=== PATIENT | female | born 1930 | race Caucasian/White ===

== ENCOUNTER 2016-08-16 11:21 | Inpatient (IN) | payer MEDICARE, MEDICAID ==
[~2016-08-16] VITALS: Ht 160 cm; Wt 63.6 kg
[~2016-08-16 11:21] MED LIST: B12-METHYL1000 MCG PO; BACTRIM DS 8001 TA1 PO; CARBIDOPA AND L1 TAB PO; CIPRO 500MG TA500 MG PO; D3-50001 TAB PO; DONEPEZIL 10MG10 MG PO; FLUOXETINE HCL40 MG PO; HYDROXYZINE50 MG PO; LEVOTHYROXINE0.1 MG PO; MAXZIDE 25 MG-31 TAB PO; METOPROLOL50 MG PO; POTASSIUM CHLO10 ME3 PO; RISPERIDONE1 MG PO; XANAX 1MG TABLET1 MG PO
[2016-08-16 11:22] VITALS: BP 143/78
[2016-08-16] MEDS ORDERED: LEVOFLOXACIN 5500 M1 PO (11:31)
--- NOTE | 2016-08-16 11:31 | Emergency Room Report ---
History of Present Illness Time Seen by [id number] Presenting Problem in Triage Pt arrived:Wheelchair Presenting Problem:DAUGHTERS STATES PT HAS HAD CHEST PAIN SINCE THE WEEKEND. PT WAS SEEN BY DR. SRIVASTAVA YESTERDAY AND DX WITH UTI. Onset of symptoms date/time:/ or onset unknown for:MEDICAL HX UNKNOWN Treatment Prior to Arrival: [employer]PER[employer]OR [employer] Provided by: Sepsis Risk Assessment: Temp: B/P: 143/78 MAP: 99 Pulse: 58 Resp: 18 Recent fever? N Clinical Suspician of Infection? Y Mental Status: 1 - Regular (Normal Baseline) Sepsis Risk:Low Sepsis Risk Have you (or family members/close friends) recently traveled outside the [place]? N If Yes, where/when: Have you had exposure to infectious disease within the past month? TB? Other? Specific Chest pain that started four days ago. Details from two daughter at bedside, one of whom has medical POA. They state that patient was seen by her neurologist yesterday and labs done including UA showing UTI, now on Levaquin; also noted to have thyroid dysfunction and electrolyte abnormalities with Rx for magnesium PO prescribed yesterday, but first dose not yet taken. Patient has weakness due to chronic knee problems and PD, and uses a walker. She fell last night at her house as not using walker, and daughter immediately found her and noted negative LOC, negative trauma, negative complaint of any pain. She began vomiting this morning and is no longer keeping down liquids or her antibiotics. ROS limited as baseline dementia from PD. She is DNR/DNI per the medical POA daughter. ALLERGIES Coded Allergies: nitrofurantoin (From MACROBID) (Mild, 10/06/15) penicillin G (Mild, 10/06/15) Home Medications Active Scripts SULFAMETHOXAZOLE W/TRIMETHOPRI (Bactrim Ds Tab) 1 TAB PO BID 3 Days Prov: 10/06/15 Reported Medications Methylcobalamin (C36-Aqsnta) 1,000 MCG PO DAILY CHOLECALCIFEROL (VITAMIN D3) (Vitamin D3) 1 TAB PO DAILY Alprazolam (Xanax 1MG) 1 MG PO BID CARBIDOPA/LEVODOPA (Carbidopa-Levodopa 25-250 Tab) 1 TAB PO TID Hydroxyzine Hcl (Hydroxyzine) 25 MG PO QIDP PRN ITCHING DONEPEZIL HCL (Donepezil 10MG Tablet) 10 MG PO DAILY Metoprolol Tartrate (Metoprolol 25MG) 50 MG PO DAILY Levothyroxine Sodium (Levothyroxine) 0.05 MG NG DAILY POTASSIUM CHL (Potassium Chloride) 10 MEQ PO QOD Risperidone 0.5 MG PO DAILY Hydrochlorothiazide W/Triamter (Triamterene-Hctz 37.5-25 MG Tb) 1 TAB PO DAILY Fluoxetine Hcl (Fluoxetine 20MG) 40 MG PO DAILY Levofloxacin (Levofloxacin 500MG TAB) 500 MG PO DAILY #5 MELATONIN (Melatin) 1 TAB PO DAILY History Medical History General CAD? No Angina: No [place]: No Hypertension? Yes Hyperlipidemia? Yes CHF? No DVT? No PE? No COPD? No Asthma? Yes Anemia? Yes GERD? No Gastric ulcers? No GI Bleed? No Hernia? No Thyroid Problems? Yes Hypothyroidism? Yes CVA? No Seizures? No Diabetes? No Renal Insuffiency? No End Stage Renal Disease? No UTI? Yes Stones? No BPH? No GB Disease: No Nephritic Syndrome? No Asplenia? No Hepatitis? No Sickle Cell Disease? No Arthritis? Yes Migraines? No Cataracts? No Glaucoma? No MRSA? No HIV? No TB? No Anxiety? No Depression? No Cancer? Yes Site: SKIN CA More? No Immunization Hx DT/Tetanus Unknown Surgical Hx Previous Surgery?Y GOITER REMOVED RT KNEE REPLACEMENT RIGHT WRIST C- SECTION HYSTERECTOMY ESOPHAGEAL Social History Smoking Hx Smoker: Never Smoker Tobacco: No Packs/day N/A Alcohol Alcohol: No Review of Systems All Other Systems Reviewed and Negative (info from POA: pt demented) Gastrointestinal see HPI Genitourinary see HPI. Psychiatric/Neurological see HPI, depressed, weakness (baseline PD; dementia) Physical Exam Vital Signs Vital Signs Date Time Temp Pulse Resp B/P Pulse O2 O2 Flow FiO2 Ox Delivery Rate 08/16 1304 86 20 154/70 99 08/16 1158 56 20 136/64 99 08/16 1122 58 18 143/78 100 General Appearance normal appearance, WD/WN, no apparent distress (flat affect c /w PD) Eye Exam - bilateral eye normal exam, bilateral eye PERRL, bilateral eye EOMI Respiratory Status Yes: trachea midline, chest symmetrical, non tender chest. No: respiratory distress, tender on palpation, use of accessory muscles, pain on inspiration, pain on expiration, productive cough, non productive cough. Lung Sounds bilateral: normal breath sounds, lungs clear. Cardiovascular normal exam, regular rate/rhythm, no peripheral edema, no gallop, no JVD, no murmur, no rub, normal peripheral pulses Gastrointestinal normal bowel sounds, non tender, soft, no organomegaly, no pulsatile mass, no guarding, no rebound Extremities non-tender, normal inspection, normal capillary refill Neurologic Baseline stiffness and flat affect c/w PD; has baseline dementia and is nonverbal; no focal findings; does not follow commands, however. Skin intact, normal color Medical Decision Making LABS/Meds/Orders Pt receiving controlled substance in ED? No Results/Orders Laboratory Tests 08/16/16 1150: Sodium 139, Potassium 3.5, Chloride 103, Carbon Dioxide 22, BUN 22 H, Creatinine 1.5 H, Estimated Creat Clear 27 L, Estimated GFR (MDRD) 33 L, Glucose 106, Calcium 9.6, Phosphorus 1.1 L, Magnesium 1.5, Total Bilirubin 0.7, AST 44 H, ALT 9 L, Alkaline Phosphatase 77, Creatine Kinase 1379 H, CK-MB (CK -2) Rel Index 1.1, CK and CKMB Interp 15.6 *H, Troponin I 0.03, Total Protein 6.6, Albumin 3.4, Globulin 3.2, Albumin/Globulin Ratio 1.1, TSH 7.29 H, Free T4 Index 10.1, Thyroxine (T4) 10.7, T3 Uptake 38, WBC 16.0 H, RBC 4.17 L, Hgb 13.1, Hct 39.7, MCV 95.1, RDW 13.5, Plt Count 294, MPV 9.5, Gran % 82.6 H, Gran # 13.2 H, Total Counted 100, Lymphocytes % 11.2, Monocytes % 5.4, Eosinophils % 0.6, Basophils % 0.2, Neutrophils 87 H, Lymphocytes (Manual) 12, Lymphocytes # 1.8, Monocytes (Manual) 1 L, Monocytes # 0.9, Eosinophils # 0.1, Basophils # 0.0, Platelet Estimate NORMAL, [place] Cells 2+, PUBS MCHC 32.9, MCH 31.3 H Current Medication Orders Sig/Donnell Start time Last Medication Dose Route Stop Time Status Admin Potassium Phosphate 15 MM ONCE ONE 08/16 1300 AC Sodium Chloride 250 ML IV 08/16 1659 Levofloxacin/Dextrose 100 ML .STK-MED ONE 08/16 1252 DC IV Sodium Chloride 1,000 ML .STK-MED ONE 08/16 1252 DC IV Levofloxacin/Dextrose 100 ML ONCE ONE 08/16 1245 r 08/16 IV 08/16 1344 1257 Sodium Chloride 1,000 ML .Q10H 08/16 1245 AC 08/16 IV 08/17 0043 1257 Sodium Chloride 10 ML PRN PRN 08/16 1245 AC IV 08/17 1243 Magnesium Sulfate 1 GM ONCE ONE 08/16 1215 DC 08/16 Sodium Chloride 50 ML IV 08/16 1229 1234 Magnesium Sulfate 0 .STK-MED ONE 08/16 1214 DC .ROUTE Sodium Chloride 10 ML PRN PRN 08/16 1130 AC IV 08/17 1128 Orders Procedure Date/time Status Decision to admit 08/[address] HEAD REQ 08/16 1202 Complete DIFFERENTIAL-WBC 08/16 1150 Complete ELECTROCARDIOGRAM REQUEST 08/16 1128 Active IV SALINE LOCK 08/16 1128 Active CULTURE, BLOOD 08/16 1128 Active URINALYSIS/COMPLETE 08/16 1128 Active THYROID PANEL 2 (WITH TSH) 08/16 1128 Complete PHOSPHORUS 08/16 1128 Complete MAGNESIUM 08/16 1128 Complete CBC WITH AUTO DIFF 08/16 1128 Complete CARDIAC ENZYMES 08/16 1128 Complete CHEM 12 PROFILE 08/16 1128 Complete 12 LEAD EKG-EFREN (INITIAL) 08/16 UNK Active CM/EKG CM/EKG EKG rate (58 SB), rhythm, no ectopy, normal [place], compared w/(date of old), ST depression, very prolonged QTc noted at 592 was 499 in January of 2016; also has ST depression laterally not seen previously. XRAY/CT/US XRAY/CT/US XRAY chest XR interpretation by reviewed by me, discussed w/radiologist Xray Results normal/NAD (rotated neg acute), no infiltrates, normal heart size, normal lung inflation [place] CT head CT interpretation by reviewed by me (report reviewed) Time results known: 1300 CT Results normal/NAD, no fracture seen Consult MD Physician Consult 1 Time Called 1159 Reason Cardiology eval/care Physician Consult 2 Consult/PCP PCP is Dr. Mascorro; he will admit and requests cardiology consult. Time Called 1230 Reason Pt. Condition Progress ED Progress Notes 1 Date 08/16/16 Time 1212 Comment Med list reviewed: she is on multiple neuro/psych medications that could prolong the QTc. We have also requested labs from Dr. Srivastava's office as well as from the neurologist's office to get verification of low magnesium level; labs drawn here and are pending. Seizure precautions on bed. ED Progress Notes 2 Date 08/16/16 Time [address] Banks's office: Mag level 1.5 on 08/15/16; will initiate replacement IV. Patient renal function good at that time, with elevated TSH, low phosphorous, documented UTI. ED Progress Notes 3 Date 08/16/16 Time 1337 Comment Family states patient would never want to be on a ventilator; states would want CPR as well as ETT emergently. Family states they have a "living will" but it sounds as if these are advanced directives, based on what they are requesting. Daughter POA will bring in papers. Departure Departure Time of Disposition 1240 Disposition Still a Patient Clinical Impression Primary Impression: Prolonged Q-T interval on ECG Secondary Impressions: UTI (urinary tract infection) Vomiting Qualifiers: Vomiting type: unspecified Vomiting Intractability: non-intractable Nausea presence: without nausea Qualified Code: R11.11 - Vomiting without nausea Condition STABLE ED Critical Care Critical Care Yes Time spent 30-74 min Vital system(s) involved: Circulatory Failure (long QTc) I was present at bedside for Coordinating pt's care, Interpreting EKGs/Strips , During my initial exam, Reviewing lab results, Reviewing old records, Discussing pt condition, For re-examinations, Examining radiographs (multiple consults) at [id number]
[2016-08-16] MEDS ORDERED: MELATIN1 TAB PO (11:32)
[2016-08-16 12:01] LABS: HEMOGLOBIN 13.1 g/dL (12.2-16.2); LYMPH # 1.8 K/mm3 (0.7-4.5); LYMPH % 11.2 % (10-50.0)
[2016-08-16 12:21] LABS: NEUTROPHILS 87 % (42-76)
[2016-08-16 12:26] LABS: FREE THYROXIN INDEX 10.1 ug/dl (5.93-13.13)
--- NOTE | 2016-08-16 12:43 | RADIOLOGY REPORT PS360 ---
CHEST-PORTABLE HISTORY: Generalized weakness malaise ORDERING PHYSICIAN: Lali Schultz MD PATIENT AGE: 85 years COMPARISON: 01/17/2016 FINDINGS: The cardiomediastinal silhouette and pulmonary vascularity are within normal limits. The lungs are clear without infiltrates, suspicious nodules, or pleural effusions. No acute bony abnormalities. IMPRESSION: Negative chest, no acute finding
--- NOTE | 2016-08-16 12:44 | RADIOLOGY REPORT PS360 ---
CT HEAD W/O CONTRAST HISTORY: Generalized weakness, malaise, dementia, hit back of head, Head pain following injury FALL ORDERING PHYSICIAN: Lali Schultz MD PATIENT AGE: 85 years COMPARISON: 10/06/2015 TECHNIQUE: Axial images obtained without contrast. Brain and bone windows reviewed. FINDINGS: No midline shift, mass effect, intracranial hemorrhage, hydrocephalus, or extra-axial fluid collection is evident. There is diffuse atrophy with hypoattenuation in the periventricular and subcortical region consistent with microangiopathic change. No intra or extra-axial hemorrhage. No acute calvarial fracture or mastoid effusion. A small air-fluid levels present in the right maxillary sinus and there is variable mucosal thickening of the paranasal sinuses. IMPRESSION: 1. Atrophy with chronic ischemic change. No acute intracranial pathology evident. 2. Sinus disease
[2016-08-16 13:53] VITALS: BP 159/63
[2016-08-16 13:57] VITALS: BP 159/63
--- NOTE | 2016-08-16 14:53 | HISTORY AND PHYSICAL REPORT ---
History and Physical (FCA) Date of admission: 08/16/16 Chief complaint: vomiting; AMS History: History of Present Illness: Ms De Leon is an 85 year old female with a history of Parkinson disease, dementia , depression hypothyroidism who presented to [facility] ER this AM after vomiting since awakening. Information is obtained from her 2 daughters who accompanied her to the ER. Patient became confused and very weak. Family denied that she had fever, upper respiratory symptoms, and diarrhea. 2 days ago she did complain of chest pain which was relieved by her nerve pill. She also experienced some falls. The daughters took her to see her neurologist yesterday and she was found to have a low MG++ and UTI. She was then evaluated in the office of A where she was found to have a UTI and started on Levaquin Past Medical History: Medical History: CAD? No Angina: No [place]: No Hypertension? Yes Hyperlipidemia? Yes CHF? No DVT? No PE? No COPD? No Asthma? Yes Anemia? Yes GERD? No Gastric ulcers? No GI Bleed? No Hernia? No Thyroid Problems? Yes Hypothyroidism? Yes CVA? No Seizures? No Diabetes? No Renal Insuffiency? No UTI? Yes Stones? No BPH? No GB Disease: No Nephritic Syndrome? No Asplenia? No Hepatitis? No Sickle Cell Disease? No Arthritis? Yes Migraines? No Cataracts? No Glaucoma? No MRSA? No HIV? No TB? No Anxiety? No Depression? No Cancer? Yes Site: SKIN CA More? No Medications: Reported Medications Risperidone 1 MG PO QHS CARBIDOPA/LEVODOPA (Sinemet Cr 50-200 Tablet) 1 TAB PO DAILY CARBIDOPA/LEVODOPA (Sinemet Cr 50-200 Tablet) 2 TAB PO QHS Alprazolam (Xanax 1MG) 1 MG PO TID Metoprolol Tartrate (Metoprolol) 50 MG PO DAILY LEVOTHYROXINE SOD (Synthroid) 0.1 MG PO DAILY Hydrochlorothiazide W/Triamter (Triamterene-Hctz 37.5-25 MG Tb) 1 TAB PO DAILY Fluoxetine Hcl 40 MG PO DAILY Methylcobalamin (S09-Irivef) 1,000 MCG PO DAILY CHOLECALCIFEROL (VITAMIN D3) (Vitamin D3) 1 TAB PO DAILY DONEPEZIL HCL (Donepezil 10MG Tablet) 10 MG PO DAILY POTASSIUM CHL (Potassium Chloride) 10 MEQ PO QOD Levofloxacin (Levofloxacin 500MG TAB) 500 MG PO DAILY #5 MELATONIN (Melatin) 1 TAB PO DAILY Allergies: Coded Allergies: nitrofurantoin (From MACROBID) (Mild, 10/06/15) penicillin G (Mild, 10/06/15) Social History: Smoking Hx Tobacco: No Smoker: Never Smoker Packs/day: N/A Are you exposed to second hand Yes Alcohol: Alcohol: No Hx of Drug Use: Drug Use? No
--- NOTE | 2016-08-16 14:53 | HISTORY AND PHYSICAL REPORT ---
History and Physical (FCA) Date of admission: 08/16/16 Chief complaint: vomiting; AMS History: History of Present Illness: Ms De Leon is an 85 year old female with a history of Parkinson disease, dementia , depression hypothyroidism who presented to [facility] ER this AM after vomiting since awakening. Information is obtained from her 2 daughters who accompanied her to the ER. Patient became confused and very weak. Family denied that she had fever, upper respiratory symptoms, and diarrhea. 2 days ago she did complain of chest pain which was relieved by her nerve pill. She also experienced some falls. The daughters took her to see her neurologist yesterday and she was found to have a low MG++ and UTI. She was then evaluated in the office of A where she was found to have a UTI and started on Levaquin Past Medical History: Medical History: CAD? No Angina: No [place]: No Hypertension? Yes Hyperlipidemia? Yes CHF? No DVT? No PE? No COPD? No Asthma? Yes Anemia? Yes GERD? No Gastric ulcers? No GI Bleed? No Hernia? No Thyroid Problems? Yes Hypothyroidism? Yes CVA? No Seizures? No Diabetes? No Renal Insuffiency? No UTI? Yes Stones? No BPH? No GB Disease: No Nephritic Syndrome? No Asplenia? No Hepatitis? No Sickle Cell Disease? No Arthritis? Yes Migraines? No Cataracts? No Glaucoma? No MRSA? No HIV? No TB? No Anxiety? No Depression? No Cancer? Yes Site: SKIN CA More? No Medications: Reported Medications Risperidone 1 MG PO QHS CARBIDOPA/LEVODOPA (Sinemet Cr 50-200 Tablet) 1 TAB PO DAILY CARBIDOPA/LEVODOPA (Sinemet Cr 50-200 Tablet) 2 TAB PO QHS Alprazolam (Xanax 1MG) 1 MG PO TID Metoprolol Tartrate (Metoprolol) 50 MG PO DAILY LEVOTHYROXINE SOD (Synthroid) 0.1 MG PO DAILY Hydrochlorothiazide W/Triamter (Triamterene-Hctz 37.5-25 MG Tb) 1 TAB PO DAILY Fluoxetine Hcl 40 MG PO DAILY Methylcobalamin (C05-Aidupy) 1,000 MCG PO DAILY CHOLECALCIFEROL (VITAMIN D3) (Vitamin D3) 1 TAB PO DAILY DONEPEZIL HCL (Donepezil 10MG Tablet) 10 MG PO DAILY POTASSIUM CHL (Potassium Chloride) 10 MEQ PO QOD Levofloxacin (Levofloxacin 500MG TAB) 500 MG PO DAILY #5 MELATONIN (Melatin) 1 TAB PO DAILY Allergies: Coded Allergies: nitrofurantoin (From MACROBID) (Mild, 10/06/15) penicillin G (Mild, 10/06/15) Social History: Smoking Hx Tobacco: No Smoker: Never Smoker Packs/day: N/A Are you exposed to second hand Yes Alcohol: Alcohol: No Hx of Drug Use: Drug Use? No
[2016-08-16] MEDS ORDERED: SINEMET CR 50 M1 TER PO ×2 (15:42)
[2016-08-16 15:49] VITALS: BP 169/62
--- NOTE | 2016-08-16 16:12 | PHARMACY CLINIC NOTE ---
Patient Demographics Patient Demographics Admission date: 08/16/16 Date: 08/16/16 Time: 1611 Allergies Coded Allergies: nitrofurantoin (From MACROBID) (Mild, 10/06/15) penicillin G (Mild, 10/06/15) HEIGHT- FT: 5 IN: 3.00 K.341 VTE General Information Labs: Laboratory Tests 08/16 1150 Hematology Hgb (12.2 - 16.2 g/dL) 13.1 Hct (37.0 - 47.0 %) 39.7 Plt Count (142 - 424 K/mm3) 294 Disclaimer The following section includes nursing documentation that has been pulled in for pharmacy review. Patient's VTE score: 1 Patient's VTE Risk: VERY LOW RISK Clinical trial participant? No VTE prophylaxis [id number] VTE prophylaxis ordered? Yes Type of prophylaxis/treatment: ISHMAEL at 1611
--- NOTE | 2016-08-16 17:44 | HISTORY AND PHYSICAL REPORT ---
See Addendum History and Physical (FCA) Date of admission: 08/16/16 Chief complaint: vomiting; AMS History: History of Present Illness: History of Present Illness: Ms De Leon is an 85 year old female with a history of Parkinson disease, dementia , depression hypothyroidism who presented to [facility] ER this AM after vomiting since awakening. Information is obtained from her 2 daughters who accompanied her to the ER. Patient became confused and very weak. Family denied that she had fever, upper respiratory symptoms, and diarrhea. 2 days ago she did complain of chest pain which was relieved by her nerve pill. She also experienced some falls. The daughters took her to see her neurologist yesterday and she was found to have a low MG++ and UTI. She was then evaluated in the office of [facility] where she was found to have a UTI and started on Levaquin Past Medical History: Medical History: CAD? No Angina: No [place]: No Hypertension? Yes Hyperlipidemia? Yes CHF? No DVT? No PE? No COPD? No Asthma? Yes Anemia? Yes GERD? No Gastric ulcers? No GI Bleed? No Hernia? No Thyroid Problems? Yes Hypothyroidism? Yes CVA? No Seizures? No Diabetes? No Renal Insuffiency? No UTI? Yes Stones? No BPH? No GB Disease: No Nephritic Syndrome? No Asplenia? No Hepatitis? No Sickle Cell Disease? No Arthritis? Yes Migraines? No Cataracts? No Glaucoma? No MRSA? No HIV? No TB? No Anxiety? No Depression? No Cancer? Yes Site: SKIN CA More? No Additional hx: Parkinson disease Dementia Surgical history: Previous Surgery?Y GOITER REMOVED RT KNEE REPLACEMENT RIGHT WRIST C- SECTION HYSTERECTOMY ESOPHAGEAL Medications: Reported Medications Risperidone 1 MG PO QHS CARBIDOPA/LEVODOPA (Sinemet Cr 50-200 Tablet) 1 TAB PO DAILY CARBIDOPA/LEVODOPA (Sinemet Cr 50-200 Tablet) 2 TAB PO QHS Alprazolam (Xanax 1MG) 1 MG PO TID Metoprolol Tartrate (Metoprolol) 50 MG PO DAILY LEVOTHYROXINE SOD (Synthroid) 0.1 MG PO DAILY Hydrochlorothiazide W/Triamter (Triamterene-Hctz 37.5-25 MG Tb) 1 TAB PO DAILY Fluoxetine Hcl 40 MG PO DAILY Methylcobalamin (F33-Pkvhhf) 1,000 MCG PO DAILY CHOLECALCIFEROL (VITAMIN D3) (Vitamin D3) 1 TAB PO DAILY DONEPEZIL HCL (Donepezil 10MG Tablet) 10 MG PO DAILY POTASSIUM CHL (Potassium Chloride) 10 MEQ PO QOD Levofloxacin (Levofloxacin 500MG TAB) 500 MG PO DAILY #5 MELATONIN (Melatin) 1 TAB PO DAILY Allergies: Coded Allergies: nitrofurantoin (From MACROBID) (Mild, 10/06/15) penicillin G (Mild, 10/06/15) Family History: Family history: Postive for: CAD, HTN, cancer, stroke. Social History: Smoking Hx Tobacco: No Smoker: Never Smoker Type: N/A Packs/day: N/A Are you exposed to second hand Yes Alcohol: Alcohol: No Hx of Drug Use: Drug Use? No Patient's support system is: good Review of Systems: Constitutional Positive for: weak. ENT Positive for: sore throat. No: ear ache. Cardiovascular Positive for: chest pain. No: edema, palpitations. Respiratory Positive for: shortness of air. No: non-productive. GI Positive for: nausea, vomitting. No: abdominal pain, constipation, diarrhea. (female) Positive for: frequency. No: hematuria. Neurological Positive for: confusion, gait problem, headache, weakness. No: seizure, syncope. Musculoskeletal Positive for: extremity pain (falling), joint pain. Physical Exam: Vital signs: 1ST Vital Signs Result Date Time Pulse Ox 100 08/16 1122 B/P 143/78 08/16 1122 Pulse 58 08/16 1122 Resp 18 08/16 1122 Temp 97.2 08/16 1331 O2 Delivery ROOM AIR 08/16 1353 Exam: General appearance: alert, awake, no acute distress Eyes: anicteric, pupils reactive to light ENT: tympanic membranes normal, cerumen in ear canal, dry mucous membranes Neck: no carotid bruit, lymphadenopathy (absent), thyroid (normal) Cardiovascular: regular rate & rhythm Respiratory: scattered wheezing ABD: non-distended, soft, no tenderness, no guarding, bowel sounds present Extremities: no peripheral edema Skin: dry, face is flushed; poor skin turgor Neuro: alert, speech is slow and does not always questions Lab data: Labs: Laboratory Tests 08/16/16 1605: Troponin I 0.03 08/16/16 1150: Sodium 139, Potassium 3.5, Chloride 103, Carbon Dioxide 22, BUN 22 H, Creatinine 1.5 H, Estimated Creat Clear 27 L, Estimated GFR (MDRD) 33 L, Glucose 106, Calcium 9.6, Phosphorus 1.1 L, Magnesium 1.5, Total Bilirubin 0.7, AST 44 H, ALT 9 L, Alkaline Phosphatase 77, Creatine Kinase 1379 H, CK-MB (CK -2) Rel Index 1.1, CK and CKMB Interp 15.6 *H, Troponin I 0.03, Total Protein 6.6, Albumin 3.4, Globulin 3.2, Albumin/Globulin Ratio 1.1, TSH 7.29 H, Free T4 Index 10.1, Thyroxine (T4) 10.7, T3 Uptake 38, WBC 16.0 H, RBC 4.17 L, Hgb 13.1, Hct 39.7, MCV 95.1, RDW 13.5, Plt Count 294, MPV 9.5, Gran % 82.6 H, Gran # 13.2 H, Total Counted 100, Lymphocytes % 11.2, Monocytes % 5.4, Eosinophils % 0.6, Basophils % 0.2, Neutrophils 87 H, Lymphocytes (Manual) 12, Lymphocytes # 1.8, Monocytes (Manual) 1 L, Monocytes # 0.9, Eosinophils # 0.1, Basophils # 0.0, Platelet Estimate NORMAL, [place] Cells 2+, PUBS MCHC 32.9, MCH 31.3 H Microbiology 08/16 1304 BLOOD: Anaerobic Blood Culture - RECD 08/16 1304 BLOOD: Aerobic Blood Culture - RECD 08/16 1304 BLOOD: Anaerobic Blood Culture - RECD 08/16 1304 BLOOD: Aerobic Blood Culture - RECD Radiology results: Results: CT of the head 08/16/16 IMPRESSION: 1. Atrophy with chronic ischemic change. No acute intracranial pathology evident. 2. Sinus disease CXR 08/16/16 IMPRESSION: Negative chest, no acute finding Diagnosis(es): 1. UTI (urinary tract infection) 2. Vomiting 3. Prolonged Q-T interval on ECG 4. Parkinson disease 5. Dementia 6. HTN (hypertension) Plan: IVF; cardiology consult; ABX for UTI (Luzmaria Lopez APRN) Date of admission: 08/16/16 Diagnosis(es): 1. UTI (urinary tract infection) 2. Vomiting 3. Prolonged Q-T interval on ECG 4. Parkinson disease 5. Dementia 6. HTN (hypertension) Plan: Pt seen and examined at this time. Per family, she has been comfortable with no further vomiting since admission. SHe ate a few bites for supper. She has had a dose of Mag and K-phos. Will repeat labs in AM. Family states they had a call from [facility] and they were faxing results of her urine culture to [facility]. I can find record of a report in her office chart tongildardo. Will continue current antibiotics pending findings of her culture. Blood cultures also pending. (Pina Brady MD) at [phone] at [phone] at [phone]
--- NOTE | 2016-08-16 17:44 | HISTORY AND PHYSICAL REPORT ---
See Addendum History and Physical (FCA) Date of admission: 08/16/16 Chief complaint: vomiting; AMS History: History of Present Illness: History of Present Illness: Ms De Leon is an 85 year old female with a history of Parkinson disease, dementia , depression hypothyroidism who presented to [facility] ER this AM after vomiting since awakening. Information is obtained from her 2 daughters who accompanied her to the ER. Patient became confused and very weak. Family denied that she had fever, upper respiratory symptoms, and diarrhea. 2 days ago she did complain of chest pain which was relieved by her nerve pill. She also experienced some falls. The daughters took her to see her neurologist yesterday and she was found to have a low MG++ and UTI. She was then evaluated in the office of [facility] where she was found to have a UTI and started on Levaquin Past Medical History: Medical History: CAD? No Angina: No NH: No Hypertension? Yes Hyperlipidemia? Yes CHF? No DVT? No PE? No COPD? No Asthma? Yes Anemia? Yes GERD? No Gastric ulcers? No GI Bleed? No Hernia? No Thyroid Problems? Yes Hypothyroidism? Yes CVA? No Seizures? No Diabetes? No Renal Insuffiency? No UTI? Yes Stones? No BPH? No GB Disease: No Nephritic Syndrome? No Asplenia? No Hepatitis? No Sickle Cell Disease? No Arthritis? Yes Migraines? No Cataracts? No Glaucoma? No MRSA? No HIV? No TB? No Anxiety? No Depression? No Cancer? Yes Site: SKIN CA More? No Additional hx: Parkinson disease Dementia Surgical history: Previous Surgery?Y GOITER REMOVED RT KNEE REPLACEMENT RIGHT WRIST C- SECTION HYSTERECTOMY ESOPHAGEAL Medications: Reported Medications Risperidone 1 MG PO QHS CARBIDOPA/LEVODOPA (Sinemet Cr 50-200 Tablet) 1 TAB PO DAILY CARBIDOPA/LEVODOPA (Sinemet Cr 50-200 Tablet) 2 TAB PO QHS Alprazolam (Xanax 1MG) 1 MG PO TID Metoprolol Tartrate (Metoprolol) 50 MG PO DAILY LEVOTHYROXINE SOD (Synthroid) 0.1 MG PO DAILY Hydrochlorothiazide W/Triamter (Triamterene-Hctz 37.5-25 MG Tb) 1 TAB PO DAILY Fluoxetine Hcl 40 MG PO DAILY Methylcobalamin (I29-Nmcibt) 1,000 MCG PO DAILY CHOLECALCIFEROL (VITAMIN D3) (Vitamin D3) 1 TAB PO DAILY DONEPEZIL HCL (Donepezil 10MG Tablet) 10 MG PO DAILY POTASSIUM CHL (Potassium Chloride) 10 MEQ PO QOD Levofloxacin (Levofloxacin 500MG TAB) 500 MG PO DAILY #5 MELATONIN (Melatin) 1 TAB PO DAILY Allergies: Coded Allergies: nitrofurantoin (From MACROBID) (Mild, 10/06/15) penicillin G (Mild, 10/06/15) Family History: Family history: Postive for: CAD, HTN, cancer, stroke. Social History: Smoking Hx Tobacco: No Smoker: Never Smoker Type: N/A Packs/day: N/A Are you exposed to second hand Yes Alcohol: Alcohol: No Hx of Drug Use: Drug Use? No Patient's support system is: good Review of Systems: Constitutional Positive for: weak. ENT Positive for: sore throat. No: ear ache. Cardiovascular Positive for: chest pain. No: edema, palpitations. Respiratory Positive for: shortness of air. No: non-productive. GI Positive for: nausea, vomitting. No: abdominal pain, constipation, diarrhea. (female) Positive for: frequency. No: hematuria. Neurological Positive for: confusion, gait problem, headache, weakness. No: seizure, syncope. Musculoskeletal Positive for: extremity pain (falling), joint pain. Physical Exam: Vital signs: 1ST Vital Signs Result Date Time Pulse Ox 100 08/16 1122 B/P 143/78 08/16 1122 Pulse 58 08/16 1122 Resp 18 08/16 1122 Temp 97.2 08/16 1331 O2 Delivery ROOM AIR 08/16 1353 Exam: General appearance: alert, awake, no acute distress Eyes: anicteric, pupils reactive to light ENT: tympanic membranes normal, cerumen in ear canal, dry mucous membranes Neck: no carotid bruit, lymphadenopathy (absent), thyroid (normal) Cardiovascular: regular rate & rhythm Respiratory: scattered wheezing ABD: non-distended, soft, no tenderness, no guarding, bowel sounds present Extremities: no peripheral edema Skin: dry, face is flushed; poor skin turgor Neuro: alert, speech is slow and does not always questions Lab data: Labs: Laboratory Tests 08/16/16 1605: Troponin I 0.03 08/16/16 1150: Sodium 139, Potassium 3.5, Chloride 103, Carbon Dioxide 22, BUN 22 H, Creatinine 1.5 H, Estimated Creat Clear 27 L, Estimated GFR (MDRD) 33 L, Glucose 106, Calcium 9.6, Phosphorus 1.1 L, Magnesium 1.5, Total Bilirubin 0.7, AST 44 H, ALT 9 L, Alkaline Phosphatase 77, Creatine Kinase 1379 H, CK-MB (CK -2) Rel Index 1.1, CK and CKMB Interp 15.6 *H, Troponin I 0.03, Total Protein 6.6, Albumin 3.4, Globulin 3.2, Albumin/Globulin Ratio 1.1, TSH 7.29 H, Free T4 Index 10.1, Thyroxine (T4) 10.7, T3 Uptake 38, WBC 16.0 H, RBC 4.17 L, Hgb 13.1, Hct 39.7, MCV 95.1, RDW 13.5, Plt Count 294, MPV 9.5, Gran % 82.6 H, Gran # 13.2 H, Total Counted 100, Lymphocytes % 11.2, Monocytes % 5.4, Eosinophils % 0.6, Basophils % 0.2, Neutrophils 87 H, Lymphocytes (Manual) 12, Lymphocytes # 1.8, Monocytes (Manual) 1 L, Monocytes # 0.9, Eosinophils # 0.1, Basophils # 0.0, Platelet Estimate NORMAL, Jose Manuel Cells 2+, PUBS MCHC 32.9, MCH 31.3 H Microbiology 08/16 1304 BLOOD: Anaerobic Blood Culture - RECD 08/16 1304 BLOOD: Aerobic Blood Culture - RECD 08/16 1304 BLOOD: Anaerobic Blood Culture - RECD 08/16 1304 BLOOD: Aerobic Blood Culture - RECD Radiology results: Results: CT of the head 08/16/16 IMPRESSION: 1. Atrophy with chronic ischemic change. No acute intracranial pathology evident. 2. Sinus disease CXR 08/16/16 IMPRESSION: Negative chest, no acute finding Diagnosis(es): 1. UTI (urinary tract infection) 2. Vomiting 3. Prolonged Q-T interval on ECG 4. Parkinson disease 5. Dementia 6. HTN (hypertension) Plan: IVF; cardiology consult; ABX for UTI (Luzmaria Lopez APRN) Date of admission: 08/16/16 Diagnosis(es): 1. UTI (urinary tract infection) 2. Vomiting 3. Prolonged Q-T interval on ECG 4. Parkinson disease 5. Dementia 6. HTN (hypertension) Plan: Pt seen and examined at this time. Per family, she has been comfortable with no further vomiting since admission. SHe ate a few bites for supper. She has had a dose of Mag and K-phos. Will repeat labs in AM. Family states they had a call from [facility] and they were faxing results of her urine culture to [facility]. I can find record of a report in her office chart [email or web address]. Will continue current antibiotics pending findings of her culture. Blood cultures also pending. (Pina Brady MD) at 1744 at 1855 at 0942
[2016-08-16 19:35] VITALS: BP 133/76
--- NOTE | 2016-08-16 20:23 | CONSULT NOTE ---
Standard Demographics Patient Demo Date of Consultation: 08/16/16 Referring Provider: Reagan Brady MD Reason for Consultation: Abnormal EKG with prolonged QT PRIMARY DIAGNOSIS: CHEST PAIN Problem list Problem list: 1. Dementia 2. Parkinson's Disease 3. Abnormal EKG 4. Hypothyroidism 5. History of depression 6. DNR 7. Hypertension History of present illness: History of present illness: 85 yo WF brought to ER for evaluation of nausea, vomiting and fall overnight with possible head trauma. CT of head today showed no acute change with evidence of chronic ischemia changes and atrophy. EKG was remarkable for bifascicular block with QT prolongation. Pt with history of dementia and is poor historian. Most of history from daughters. Pt was seen by her Neurologist (for Parkinson's) yesterday with evidence of low magnesium and UTI for which after being seen by PCP, she was started on Levaquin. Cardiology consulted for evaluation and recommendations. Past Medical History: General: Hypertension Yes CVA No Seizures No TB No COPD No Asthma Yes Diabetes No Angina No MD No Hyperlipidemia Yes Cancer Yes MRSA No GB Disease No Additional hx Parkinson disease Dementia Past Surgical HX: Previous Surgery?Y GOITER REMOVED RT KNEE REPLACEMENT RIGHT WRIST C- SECTION HYSTERECTOMY ESOPHAGEAL Allergies Coded Allergies: nitrofurantoin (From MACROBID) (Mild, 10/06/15) penicillin G (Mild, 10/06/15) Home medications: Reported Medications Risperidone 1 MG PO QHS CARBIDOPA/LEVODOPA (Sinemet Cr 50-200 Tablet) 1 TAB PO DAILY CARBIDOPA/LEVODOPA (Sinemet Cr 50-200 Tablet) 2 TAB PO QHS Alprazolam (Xanax 1MG) 1 MG PO TID Metoprolol Tartrate (Metoprolol) 50 MG PO DAILY LEVOTHYROXINE SOD (Synthroid) 0.1 MG PO DAILY Hydrochlorothiazide W/Triamter (Triamterene-Hctz 37.5-25 MG Tb) 1 TAB PO DAILY Fluoxetine Hcl 40 MG PO DAILY Methylcobalamin (F12-Oioljl) 1,000 MCG PO DAILY CHOLECALCIFEROL (VITAMIN D3) (Vitamin D3) 1 TAB PO DAILY DONEPEZIL HCL (Donepezil 10MG Tablet) 10 MG PO DAILY POTASSIUM CHL (Potassium Chloride) 10 MEQ PO QOD Levofloxacin (Levofloxacin 500MG TAB) 500 MG PO DAILY #5 MELATONIN (Melatin) 1 TAB PO DAILY Current Medications: Current Medications Potassium Chloride 10 MEQ QOD PO Carbidopa/Levodopa 1 TABLET DAILY PO Levofloxacin/Dextrose 100 ML DAILY IV (CAN) Levothyroxine Sodium 0.1 MG DAILY PO Metoprolol Tartrate 50 MG DAILY PO Alprazolam 1 MG BID PO Carbidopa/Levodopa 1 TABLET TID PO (DC) Carbidopa/Levodopa 2 TABLET QHS PO Sodium Chloride 50 ML .STK-MED ONE IV (DC) Ceftriaxone Sodium 0 .STK-MED ONE IV (DCr) Ceftriaxone Sodium 1 GM Q24H IV (UNVr) Sodium Chloride 50 ML Sodium Chloride 10 ML PRN PRN IV Potassium Phosphate 15 MM ONCE ONE IV (DC) Sodium Chloride 250 ML Levofloxacin/Dextrose 100 ML .STK-MED ONE IV (DC) Sodium Chloride 1,000 ML .STK-MED ONE IV (DC) Levofloxacin/Dextrose 100 ML ONCE ONE IV (DCr) Sodium Chloride 1,000 ML .Q10H IV Sodium Chloride 10 ML PRN PRN IV Magnesium Sulfate 1 GM ONCE ONE IV (DC) Sodium Chloride 50 ML Magnesium Sulfate 0 .STK-MED ONE .ROUTE (DC) Sodium Chloride 10 ML PRN PRN IV Immunization HX DT/Tetanus Unknown Flu 2015-FSN Pneumonia RECEIVED IN PAST TB Test in last year No Family history Family HX Family Hx Insignificant No Diabetes No CAD No Hypertension Yes Hyperlipidemia No Cancer Yes TB No Social Hx: Smoking HX Tobacco No Type N/A Packs/day N/A Are you/the child exposed to second-hand smoke: Yes Alcohol Alcohol: No Hx of Drug Use Drug Use? No Review of systems: Constitutional weakness. Respiratory No: no symptoms reported. Cardiovascular see HPI, chest pain Gastrointestinal/Abdominal see HPI, nausea, vomiting Genitourinary see HPI. Musculoskeletal see HPI. Neurological Yes: tremors. Exam: Admission Vital Signs: 1ST Vital Signs Result Date Time Pulse Ox 100 08/16 1122 B/P 143/78 08/16 1122 Pulse 58 08/16 1122 Resp 18 08/16 1122 Temp 97.2 08/16 1331 O2 Delivery ROOM AIR 08/16 1353 Last Vital Signs: Vital Signs Result Date Time Pulse Ox 98 08/16 2000 B/P 133/76 08/16 2000 Temp 98.0 08/16 2000 Pulse 65 08/16 2000 Resp 20 08/16 2000 O2 Delivery ROOM AIR 08/16 1934 Exam General appearance: awake, no acute distress Cardiovascular: regular rate & rhythm Respiratory: clear to auscultation ABD: soft, no tenderness Extremities: moves all, no peripheral edema Neuro: masklike facies, non-focal Laboratory data: Laboratory Tests 08/16/16 1901: Troponin I 0.04 08/16/16 1605: Troponin I 0.03 08/16/16 1150: Sodium 139, Potassium 3.5, Chloride 103, Carbon Dioxide 22, BUN 22 H, Creatinine 1.5 H, Estimated Creat Clear 27 L, Estimated GFR (MDRD) 33 L, Glucose 106, Calcium 9.6, Phosphorus 1.1 L, Magnesium 1.5, Total Bilirubin 0.7, AST 44 H, ALT 9 L, Alkaline Phosphatase 77, Creatine Kinase 1379 H, CK-MB (CK -2) Rel Index 1.1, CK and CKMB Interp 15.6 *H, Troponin I 0.03, Total Protein 6.6, Albumin 3.4, Globulin 3.2, Albumin/Globulin Ratio 1.1, TSH 7.29 H, Free T4 Index 10.1, Thyroxine (T4) 10.7, T3 Uptake 38, WBC 16.0 H, RBC 4.17 L, Hgb 13.1, Hct 39.7, MCV 95.1, RDW 13.5, Plt Count 294, MPV 9.5, Gran % 82.6 H, Gran # 13.2 H, Total Counted 100, Lymphocytes % 11.2, Monocytes % 5.4, Eosinophils % 0.6, Basophils % 0.2, Neutrophils 87 H, Lymphocytes (Manual) 12, Lymphocytes # 1.8, Monocytes (Manual) 1 L, Monocytes # 0.9, Eosinophils # 0.1, Basophils # 0.0, Platelet Estimate NORMAL, Jose Manuel Cells 2+, PUBS MCHC 32.9, MCH 31.3 H Microbiology Date/Time Procedure - Status Source Growth 08/16 1304 Anaerobic Blood Culture - RECD BLOOD 08/16 1305 Aerobic Blood Culture - RECD BLOOD 08/16 130 Anaerobic Blood Culture - RECD BLOOD 08/16 130 Aerobic Blood Culture - RECD BLOOD Plan: Assessment: 1. Abnormal EKG 2. Prolonged QTc, multifactorial 3. chest pain with normal troponin 4. CKD, stage 3 with Cr 1.5 and GFR 33 Recommendations: 1. Conservative management discussed with family. 2. Avoid levaquin, if possible, due to possible etiology for QT prolongation 3. Obtain 2D echo for evaluation of LV size and function. at 2041
[2016-08-17 03:56] VITALS: BP 115/63
[2016-08-17 06:40] LABS: HEMOGLOBIN 12.4 g/dL (12.2-16.2); LYMPH # 2.7 K/mm3 (0.7-4.5); LYMPH % 23.2 % (10-50.0)
--- NOTE | 2016-08-17 08:05 | ACUTE CARE PROGRESS NOTE (QUA) ---
Progress Notes Subjective Date 08/17/16 Time 0749 Note Per daughter: seemed to be improving; then awakened at 0300 complaining of hurting in different places along with nausea. Daughter gave her Ibuprofen which seemed to help. Patient denies any pain this AM, SOB and nausea. She is not hungry. She has been voiding in her depends. WBC's are less; renal function has slightly improved; low K+ Objective Findings Laboratory Tests 08/17/16 0605: Phosphorus 2.7, Magnesium 1.7 08/17/16 0605: Sodium 142, Potassium 3.2 L, Chloride 108 H, Carbon Dioxide 19 L, BUN 17, Creatinine 1.4 H, Estimated Creat Clear 30 L, Estimated GFR (MDRD) 36 L, Glucose 79, Calcium 8.4 L, WBC 11.7 H, RBC 3.90 L, Hgb 12.4, Hct 37.2, MCV 95.4, RDW 13.7, Plt Count 292, MPV 9.6, Gran % 69.4, Gran # 8.1 H, Lymphocytes % 23.2, Monocytes % 5.4, Eosinophils % 1.7, Basophils % 0.3, Lymphocytes # 2.7, Monocytes # 0.6, Eosinophils # 0.2, Basophils # 0.0, PUBS MCHC 33.3, MCH 31.7 H 08/16/16 1901: Troponin I 0.04 08/16/16 1605: Troponin I 0.03 08/16/16 1150: Sodium 139, Potassium 3.5, Chloride 103, Carbon Dioxide 22, BUN 22 H, Creatinine 1.5 H, Estimated Creat Clear 27 L, Estimated GFR (MDRD) 33 L, Glucose 106, Calcium 9.6, Phosphorus 1.1 L, Magnesium 1.5, Total Bilirubin 0.7, AST 44 H, ALT 9 L, Alkaline Phosphatase 77, Creatine Kinase 1379 H, CK-MB (CK -2) Rel Index 1.1, CK and CKMB Interp 15.6 *H, Troponin I 0.03, Total Protein 6.6, Albumin 3.4, Globulin 3.2, Albumin/Globulin Ratio 1.1, TSH 7.29 H, Free T4 Index 10.1, Thyroxine (T4) 10.7, T3 Uptake 38, WBC 16.0 H, RBC 4.17 L, Hgb 13.1, Hct 39.7, MCV 95.1, RDW 13.5, Plt Count 294, MPV 9.5, Gran % 82.6 H, Gran # 13.2 H, Total Counted 100, Lymphocytes % 11.2, Monocytes % 5.4, Eosinophils % 0.6, Basophils % 0.2, Neutrophils 87 H, Lymphocytes (Manual) 12, Lymphocytes # 1.8, Monocytes (Manual) 1 L, Monocytes # 0.9, Eosinophils # 0.1, Basophils # 0.0, Platelet Estimate NORMAL, [place] Cells 2+, PUBS MCHC 32.9, MCH 31.3 H Microbiology 08/16 1304 BLOOD: Anaerobic Blood Culture - RECD 08/16 1304 BLOOD: Aerobic Blood Culture - RECD 08/16 1304 BLOOD: Anaerobic Blood Culture - RECD 08/16 1304 BLOOD: Aerobic Blood Culture - RECD Vital Signs Date Time Temp Pulse Resp B/P Pulse O2 O2 Flow FiO2 Ox Delivery Rate 08/17 0356 97.6 58 16 115/63 98 ROOM AIR 08/16 2001 98.0 65 20 133/76 98 08/16 1935 98.0 65 20 133/76 98 ROOM AIR 08/16 1549 97.8 59 18 169/62 98 ROOM AIR 08/16 1357 97.8 58 18 159/63 99 ROOM AIR 08/16 1353 58 08/16 1353 97.8 58 18 159/63 08/16 1353 99 ROOM AIR 08/16 1331 97.2 85 20 142/72 99 08/16 1304 86 20 154/70 99 08/16 1158 56 20 136/64 99 08/16 1122 58 18 143/78 100 Current Medications Potassium Chloride 10 MEQ QOD PO Ceftriaxone Sodium 1 GM Q24H IV Sodium Chloride 50 ML Carbidopa/Levodopa 1 TABLET DAILY PO Levofloxacin/Dextrose 100 ML DAILY IV (CAN) Levothyroxine Sodium 0.1 MG DAILY PO Metoprolol Tartrate 50 MG DAILY PO Ondansetron HCl 4 MG Q8HP PRN IV Ondansetron HCl 0 .STK-MED ONE .ROUTE (DC) Sodium Chloride 1,000 ML .STK-MED ONE IV (DC) Alprazolam 1 MG BID PO Carbidopa/Levodopa 1 TABLET TID PO (DC) Carbidopa/Levodopa 2 TABLET QHS PO Sodium Chloride 50 ML .STK-MED ONE IV (DC) Ceftriaxone Sodium 0 .STK-MED ONE IV (DCr) Ceftriaxone Sodium 1 GM Q24H IV (DC) Sodium Chloride 50 ML Sodium Chloride 10 ML PRN PRN IV Potassium Phosphate 15 MM ONCE ONE IV (DC) Sodium Chloride 250 ML Levofloxacin/Dextrose 100 ML .STK-MED ONE IV (DC) Sodium Chloride 1,000 ML .STK-MED ONE IV (DC) Levofloxacin/Dextrose 100 ML ONCE ONE IV (DCr) Sodium Chloride 1,000 ML .Q10H IV (DC) Sodium Chloride 10 ML PRN PRN IV Magnesium Sulfate 1 GM ONCE ONE IV (DC) Sodium Chloride 50 ML Magnesium Sulfate 0 .STK-MED ONE .ROUTE (DC) Sodium Chloride 10 ML PRN PRN IV 08/16 1500 08/16 2300 08/17 0700 Intake Total 749 978 Output Total Balance 749 978 Intake, IV 629 978 Intake, Oral 120 Patient 137 lb Weight Last VS-Temp:97.6 B/P:115/63 Pulse:58 Resp:16 SaO2:98 ROOM AIR Last weight lbs:137 oz:7 K.341 Method:Bed Scales Exam General appearance: alert, flat affect; appears comfortable Cardiovascular: regular rate & rhythm Respiratory: clear to auscultation (bilat anterior and posterior) ABD: soft, no tenderness, no guarding, bowel sounds present Extremities: no peripheral edema, no calf tenderness, has trouble lifting her right leg Neuro: alert, oriented, speech clear, slow responce but speech is very clear; flat affect Assessment/Plan Problem List 1. HTN (hypertension) 2. UTI (urinary tract infection) 3. Vomiting 4. Prolonged Q-T interval on ECG 5. Parkinson disease 6. Dementia 7. Hypokalemia Patient condition Stable Plan: continue current care, increase KCL This inpt stay is expected to cross 2 MNs from start of care Yes (Luzmaria Lopez APRN) Assessment/Plan Problem List 1. HTN (hypertension) 2. UTI (urinary tract infection) 3. Vomiting 4. Prolonged Q-T interval on ECG 5. Parkinson disease 6. Dementia 7. Hypokalemia 8. Hypomagnesemia 9. Hypophosphatemia Comments: Patient seen and agree with above note. (Subha ARCE,Tiburcio) at 0805 at 0904
[2016-08-17 08:09] VITALS: BP 157/70
--- NOTE | 2016-08-17 08:38 | ACUTE CARE PROGRESS NOTE (QUA) ---
Progress Notes Subjective Date 08/17/16 Time 0833 Note 85 yo WF in bed in NAD. States she feels bad but is not specific about why. Denies any chest pain. Reportedly complained of heart pounding last evening with pulse rate of high 50's. Objective Findings Last VS-Temp:98.1 B/P:157/70 Pulse:61 Resp:16 SaO2:99 ROOM AIR Last weight lbs:137 oz:7 K.341 Method:Bed Scales Exam General appearance: awake, no acute distress Cardiovascular: regular rate & rhythm Respiratory: clear to auscultation Reviewed: medications, vital signs, lab results Assessment/Plan Problem List 1. HTN (hypertension) Assessment/Plan: Will obtain echo today to evaluate cardiac function. Qualifiers: Hypertension type: essential hypertension Qualified Code: I10 - Essential ( primary) hypertension 2. UTI (urinary tract infection) 3. Vomiting Qualifiers: Vomiting type: unspecified Vomiting Intractability: non-intractable Nausea presence: without nausea Qualified Code: R11.11 - Vomiting without nausea 4. Prolonged Q-T interval on ECG Assessment/Plan: Levaquin has been stopped. Will repeat EKG. 5. Parkinson disease 6. Dementia 7. Hypokalemia Patient condition Guarded Plan: Continue conservative approach from cardiac standpoint. Cardiac troponins not indicative of ACS. QTc improved. Echo shows normal LVEF with no wall motion abnormalities. No further cardiac workup planned. Stable from cardiac point of view. Call for further questions. This inpt stay is expected to cross 2 MNs from start of care Yes at 1341
[2016-08-17 09:00] VITALS: BP 157/70
--- NOTE | 2016-08-17 14:34 | RADIOLOGY REPORT PS360 ---
PROCEDURE: 2-D M-mode and color Doppler study INDICATIONS FOR THE TEST: Chest pain + COPD Heart Murmur Tobacco Smoking Palpitations Fatigue Syncope Edema Hypertension+Diabetes Mellitus Rheumatic Fever SOB MORRIS Obesity Hyperlipidemia Family History HD Additional History PATIENT INFORMATION HEIGHT: 63 WEIGHT:137 GENDER: Female B/P:133/76 2-D/M-MODE INTERPRETATION: 2-D MEASUREMENTS OBSERVED VALUES IN CMS Right Ventricular Dimension (RVDd) 2.1 Interventricular Septum (Thickness)(IVsd) 1.5 Left Ventricular Internal Dimensions(LVIDd) 3.4 Left Ventricular Posterior Wall (Thickness)(LVPWd) 1.3 Aortic Root 3.0 Aortic Cusp Separation 1.9 Left Atrial Dimensions (LAD) 3.6 2D 1. The left atrium is normal size, the left ventricle is normal size, there is mild concentric left ventricular hypertrophy present, visually estimated ejection fraction 55-60% with no obvious regional wall motion abnormality. 2. The right atrium and right ventricle are normal size and contractility. 3. The aortic valve is minimally thickened and fibrosed there is no aortic stenosis. 4. The mitral valve has mild mitral calcification, there is no mitral stenosis. 5. The tricuspid valve restructure normal. 6.The pulmonic valve is not well visualized. 7. No significant pericardial effusion noted. DOPPLER INTERROGATION: Doppler interrogation of the aortic mitral and tricuspid valve reveals presence of mild mitral and tricuspid regurgitation, calculated right ventricular systolic pressure is within normal range. CONCLUSION: 1. Normal left ventricular size, mild concentric left ventricular hypertrophy, visually estimated ejection fraction 55-60% with no obvious regional wall motion abnormality. 2. Mild mitral and tricuspid regurgitation, calculated right ventricular systolic pressure within normal range. 3. No significant pericardial effusion noted.
[2016-08-17 15:49] VITALS: BP 136/57
[2016-08-17 21:00] VITALS: BP 126/55
[2016-08-18 03:43] VITALS: BP 134/62
[2016-08-18 07:37] VITALS: BP 129/62
--- NOTE | 2016-08-18 08:14 | ACUTE CARE PROGRESS NOTE (QUA) ---
Progress Notes Subjective Date 08/18/16 Time 0811 Note Pt's daughter states she feels better today. She actually slept all night. She did eat a little better this am. Her daughter is anxious for her to try to work with PT. Objective Findings Last VS-Temp:97.3 B/P:129/62 Pulse:54 Resp:18 SaO2:96 ROOM AIR Last weight lbs:137 oz:7 K.341 Method:Bed Scales Exam General appearance: alert, awake, no acute distress Cardiovascular: regular rate & rhythm Respiratory: clear to auscultation ABD: non-distended, normal bowel sounds, no rebound, soft, no tenderness, no guarding Extremities: no peripheral edema Assessment/Plan Problem List 1. HTN (hypertension) 2. UTI (urinary tract infection) 3. Vomiting 4. Prolonged Q-T interval on ECG 5. Parkinson disease 6. Dementia 7. Hypokalemia Plan: Will recheck labs today to check on potassium level. Can hopefully start PT today. Will discuss with Dr. Mascorro. This inpt stay is expected to cross 2 MNs from start of care Yes (Rukhsana Samuel) Assessment/Plan Problem List 1. UTI (urinary tract infection) Status: Acute 2. Vomiting Status: Acute 3. Prolonged Q-T interval on ECG Status: Acute 4. HTN (hypertension) Status: Chronic 5. Parkinson disease Status: Chronic 6. Dementia Status: Chronic 7. Hypokalemia Status: Resolved 8. Hypomagnesemia Status: Resolved 9. Hypophosphatemia Status: Resolved Comments: Patient seen and agree with above note, she has improved some, not back to baseline. Will order PT evaluation today. (Tiburcio Mascorro MD) at 0813 at 0844
[2016-08-18 08:59] VITALS: BP 129/62
[2016-08-18 08:59] LABS: HEMOGLOBIN 11.6 g/dL (12.2-16.2); LYMPH # 1.5 K/mm3 (0.7-4.5); LYMPH % 13.8 % (10-50.0)
[2016-08-18 16:15] VITALS: BP 132/77
[2016-08-18 20:00] VITALS: BP 136/57
[2016-08-19 04:37] VITALS: BP 130/64
[2016-08-19 07:34] VITALS: BP 131/57
--- NOTE | 2016-08-19 08:27 | ACUTE CARE PROGRESS NOTE (QUA) ---
Progress Notes Subjective Date 08/19/16 Time 0823 Note Pt's daughter states she really thinks the patient needs her prozac restarted and her dose of 2 alprazolam at night. She states she has not been sleeping and has had a very flat affect since being taken off of her prozac and home dose of alprazolam. She did work with PT yesterday and walked to the door. She did not sleep at all last night. She ate a small amount of breakfast. She has c/o pain in her legs off and on all night. Objective Findings Last VS-Temp:98.2 B/P:131/57 Pulse:57 Resp:20 SaO2:98 ROOM AIR Last weight lbs:137 oz:7 K.341 Method:Bed Scales Laboratory Tests 08/18/16 0850: Sodium 141, Potassium 3.6, Chloride 109 H, Carbon Dioxide 26, BUN 15, Creatinine 1.2 H, Estimated Creat Clear 35 L, Estimated GFR (MDRD) 43 L, Glucose 113 H, Calcium 8.2 L, WBC 11.0 H, RBC 3.75 L, Hgb 11.6 L, Hct 37.1, MCV 99.0 H, RDW 13.9, Plt Count 254, MPV 9.4, Gran % 80.1 H, Gran # 8.8 H, Lymphocytes % 13.8, Monocytes % 3.7, Eosinophils % 2.1, Basophils % 0.3, Lymphocytes # 1.5, Monocytes # 0.4, Eosinophils # 0.2, Basophils # 0.0, PUBS MCHC 31.3 L, MCH 31.0 Exam General appearance: alert, awake, no acute distress Cardiovascular: regular rate & rhythm Respiratory: clear to auscultation ABD: non-distended, normal bowel sounds, no rebound, soft, no tenderness, no guarding Extremities: no peripheral edema Assessment/Plan Problem List 1. UTI (urinary tract infection) Status: Acute 2. Vomiting Status: Acute 3. Prolonged Q-T interval on ECG Status: Acute 4. HTN (hypertension) Status: Chronic 5. Parkinson disease Status: Chronic 6. Dementia Status: Chronic 7. Hypokalemia Status: Resolved 8. Hypomagnesemia Status: Resolved 9. Hypophosphatemia Status: Resolved Plan: Will discuss restarting home medications with Dr. Mascorro. Will continue PT. This inpt stay is expected to cross 2 MNs from start of care Yes (Rukhsana Samuel) Assessment/Plan Problem List 1. UTI (urinary tract infection) Status: Acute 2. Vomiting Status: Acute 3. Leukocytosis 4. Prolonged Q-T interval on ECG Status: Acute 5. HTN (hypertension) Status: Chronic 6. Parkinson disease Status: Chronic 7. Dementia Status: Chronic 8. Hypokalemia Status: Resolved 9. Hypomagnesemia Status: Resolved 10. Hypophosphatemia Status: Resolved Comments: Patient seen and agree with above note, AM labs pending, she is slowly improving , will continue discussion with family about home with home health vs placement in SNF. (Tiburcio Mascorro MD) at 0826 at 0855
[2016-08-19 09:16] VITALS: BP 131/57
[2016-08-19 09:35] LABS: HEMOGLOBIN 11.3 g/dL (12.2-16.2); LYMPH # 1.2 K/mm3 (0.7-4.5); LYMPH % 10.6 % (10-50.0)
[2016-08-19 15:28] VITALS: BP 152/73
[2016-08-19 20:15] VITALS: BP 117/78
[2016-08-20] VITALS (7 sets, daily range): BP systolic 107–157; BP diastolic 46–77
[2016-08-20 06:51] LABS: LYMPH # 2.1 K/mm3 (0.7-4.5); LYMPH % 14.8 % (10-50.0)
[2016-08-20 07:19] LABS: HEMOGLOBIN 12.8 g/dL (12.2-16.2)
--- NOTE | 2016-08-20 08:25 | ACUTE CARE PROGRESS NOTE (QUA) ---
Progress Notes Subjective Date 08/20/16 Time 0822 Note Pt states she is "here" this am. Her daughter says she is c/o pain in her neck and in her right knee. She did not sleep all night d/t pain. This am, the patient denies any pain. Objective Findings Last VS-Temp:97.5 B/P:157/77 Pulse:62 Resp:18 SaO2:99 ROOM AIR Last weight lbs:137 oz:7 K.341 Method:Bed Scales Laboratory Tests 08/20/16 0635: Sodium 137, Potassium 3.4 L, Chloride 104, Carbon Dioxide 25, BUN 17, Creatinine 0.8, Estimated Creat Clear 52, Estimated GFR (MDRD) 69, Glucose 90, Calcium 8.5, WBC 14.1 H, RBC 4.10 L, Hgb 12.8, Hct 39.5, MCV 96.4, RDW 14.0, Plt Count 264, MPV 8.9, Gran % 76.9, Gran # 10.8 H, Lymphocytes % 14.8, Monocytes % 4.7, Eosinophils % 3.3, Basophils % 0.4, Lymphocytes # 2.1, Monocytes # 0.7, Eosinophils # 0.5 H, Basophils # 0.1, PUBS MCHC 32.1, MCH 31.0 08/19/16 0910: Sodium 138, Potassium 3.5, Chloride 106, Carbon Dioxide 27, BUN 20 H, Creatinine 0.9, Estimated Creat Clear 47 L, Estimated GFR (MDRD) 60, Glucose 117 H, Calcium 8.1 L, Phosphorus 2.4, Magnesium 1.2 L, WBC 11.0 H, RBC 3.74 L, Hgb 11.3 L, Hct 36.6 L, MCV 97.7, RDW 13.7, Plt Count 256, MPV 9.0, Gran % 82.2 H, Gran # 9.1 H, Lymphocytes % 10.6, Monocytes % 4.8, Eosinophils % 2.2, Basophils % 0.2, Lymphocytes # 1.2, Monocytes # 0.5, Eosinophils # 0.3, Basophils # 0.0, PUBS MCHC 30.9 L, MCH 30.2 Exam General appearance: alert, awake, no acute distress Cardiovascular: regular rate & rhythm Respiratory: clear to auscultation ABD: non-distended, normal bowel sounds, no rebound, soft, no tenderness, no guarding Extremities: no peripheral edema Assessment/Plan Problem List 1. UTI (urinary tract infection) Status: Acute 2. Vomiting Status: Acute 3. Leukocytosis 4. Prolonged Q-T interval on ECG Status: Acute 5. HTN (hypertension) Status: Chronic 6. Parkinson disease Status: Chronic 7. Dementia Status: Chronic 8. Hypokalemia Status: Resolved 9. Hypomagnesemia Status: Resolved 10. Hypophosphatemia Status: Resolved Plan: WBC is elevated today and potassium is slightly low. She had a bad night. Will increase potassium dose and recheck labs tomorrow. This inpt stay is expected to cross 2 MNs from start of care Yes (Rukhsana Samuel) Assessment/Plan Problem List 1. UTI (urinary tract infection) Status: Acute 2. Vomiting Status: Acute 3. Leukocytosis 4. Prolonged Q-T interval on ECG Status: Acute 5. HTN (hypertension) Status: Chronic 6. Parkinson disease Status: Chronic 7. Dementia Status: Chronic 8. Hypokalemia Status: Resolved 9. Hypomagnesemia Status: Resolved 10. Hypophosphatemia Status: Resolved Comments: Patient seen and agree with above note. Will not discharge today due to rising WBC count. Plan on increasing potassium and Magnesium today and increase Sinemet dose. (Tiburcio Mascorro MD) at 0824 at 0837
--- NOTE | 2016-08-20 11:15 | ACUTE CARE PROGRESS NOTE (QUA) ---
Progress Notes Subjective Date 08/20/16 Time 1115 Assessment/Plan Problem List 1. UTI (urinary tract infection) Status: Acute 2. Vomiting Status: Acute 3. Leukocytosis 4. Prolonged Q-T interval on ECG Status: Acute 5. HTN (hypertension) Status: Chronic 6. Parkinson disease Status: Chronic 7. Dementia Status: Chronic 8. Hypokalemia Status: Resolved 9. Hypomagnesemia Status: Resolved 10. Hypophosphatemia Status: Resolved This inpt stay is expected to cross 2 MNs from start of care Yes Antibiotic Stewardship (2) Current Culture Results Microbiology 08/16 1305 BLOOD: Anaerobic Blood Culture - RES 08/16 1305 BLOOD: Aerobic Blood Culture - RES Infxn that will respond? Yes Right drug,dose,and route? Yes More targeted antbx? No How long atbx needed? 10 at 1115
[2016-08-21 03:55] VITALS: BP 129/70
[2016-08-21 06:28] LABS: HEMOGLOBIN 11.6 g/dL (12.2-16.2); LYMPH # 1.9 K/mm3 (0.7-4.5); LYMPH % 14.2 % (10-50.0)
[2016-08-21 07:38] VITALS: BP 128/59
--- NOTE | 2016-08-21 08:39 | ACUTE CARE PROGRESS NOTE (QUA) ---
Progress Notes Subjective Date 08/21/16 Time 0835 Note Patient had a better night last night, was able to get out of bed a couple of times yesterday with minimal assistance. Objective Findings Laboratory Tests 08/21/16 0605: Sodium 133 L, Potassium 4.0, Chloride 106, Carbon Dioxide 24, BUN 18, Creatinine 0.7, Estimated Creat Clear 60, Estimated GFR (MDRD) 80, Glucose 86, Calcium 7.8 L, WBC 13.2 H, RBC 3.67 L, Hgb 11.6 L, Hct 35.8 L, MCV 97.6, RDW 13.9, Plt Count 257, MPV 9.2, Gran % 77.3, Gran # 10.2 H, Lymphocytes % 14.2, Monocytes % 4.8, Eosinophils % 3.6, Basophils % 0.1, Lymphocytes # 1.9, Monocytes # 0.6, Eosinophils # 0.5 H, Basophils # 0.0, PUBS MCHC 32.4, MCH 31.6 H Vital Signs Date Time Temp Pulse Resp B/P Pulse O2 O2 Flow FiO2 Ox Delivery Rate 08/21 0738 98.6 58 20 128/59 98 ROOM AIR 08/21 0355 97.8 57 16 129/70 96 ROOM AIR 08/20 2356 97.4 76 16 129/58 96 ROOM AIR 08/20 2224 98.6 57 16 134/61 98 02 1933 98.6 57 16 134/61 98 ROOM AIR 08/20 1540 98.5 57. 20 107/46 98 ROOM AIR 08/20 1144 98.2 54 18 136/65 97 ROOM AIR I&O Past 24 Hrs-ending at 0700 08/21 0700 Intake Total 600 Output Total Balance 600 Last VS-Temp:98.6 B/P:128/59 Pulse:58 Resp:20 SaO2:98 ROOM AIR Last weight lbs:137 oz:7 K.341 Method:Bed Scales Exam General appearance: no acute distress (sleeping) Cardiovascular: regular rate & rhythm Respiratory: clear to auscultation ABD: normal bowel sounds, soft, no tenderness Assessment/Plan Problem List 1. UTI (urinary tract infection) Status: Acute 2. Vomiting Status: Resolved 3. Leukocytosis Status: Acute 4. Prolonged Q-T interval on ECG Status: Resolved 5. HTN (hypertension) Status: Chronic 6. Parkinson disease Status: Chronic 7. Dementia Status: Chronic 8. Hypokalemia Status: Resolved 9. Hypomagnesemia Status: Resolved 10. Hypophosphatemia Status: Resolved This inpt stay is expected to cross 2 MNs from start of care Yes Comments: Patient has improved, plan discharge to [place] today on oral antibiotics for her UTI. Antibiotic Stewardship (2) Infxn that will respond? Yes Right drug,dose,and route? Yes More targeted antbx? No at 0838
[2016-08-21] MEDS ORDERED: XANAX 1MG TABLET1 MG PO (08:42)
[2016-08-21] MEDS ORDERED: NATURE'S BLEND1 TA4 PO (08:43)
[2016-08-21] MEDS ORDERED: CEFUROXIME AXE500 MG PO (08:43)
--- NOTE | 2016-08-21 08:50 | DISCHARGE SUMMARY STANDARD ---
Discharge Summary (FCA2) Date of admission: 08/17/16 Date of discharge: 08/21/16 Problem List: 1. UTI (urinary tract infection) 2. Vomiting 3. Leukocytosis 4. Prolonged Q-T interval on ECG 5. HTN (hypertension) 6. Parkinson disease 7. Dementia 8. Hypokalemia 9. Hypomagnesemia 10. Hypophosphatemia History of present illness: 85 yo WF brought to ER for evaluation of nausea, vomiting and fall overnight with possible head trauma. CT of head today showed no acute change with evidence of chronic ischemia changes and atrophy. EKG was remarkable for bifascicular block with QT prolongation. Pt with history of dementia and is poor historian. Most of history from daughters. Pt was seen by her Neurologist (for Parkinson's) yesterday with evidence of low magnesium and UTI for which after being seen by PCP, she was started on Levaquin. Cardiology consulted for evaluation and recommendations. Hospital Course: Patient was admitted to [facility] with weakness, prolonged QT interval, UTI, vomiting after taking Levaquin and low magnesium and phosphorus. She was changed to Rocephin and her electrolyte abnormalities were corrected. She has slowly regained some strength but is not back to baseline at this point. Her QT interval corrected with conservative management and all of her home meds have been resumed besides Risperidone. Laboratory data this visit: Laboratory Tests 08/21/16 0605: Sodium 133 L, Potassium 4.0, Chloride 106, Carbon Dioxide 24, BUN 18, Creatinine 0.7, Estimated Creat Clear 60, Estimated GFR (MDRD) 80, Glucose 86, Calcium 7.8 L, WBC 13.2 H, RBC 3.67 L, Hgb 11.6 L, Hct 35.8 L, MCV 97.6, RDW 13.9, Plt Count 257, MPV 9.2, Gran % 77.3, Gran # 10.2 H, Lymphocytes % 14.2, Monocytes % 4.8, Eosinophils % 3.6, Basophils % 0.1, Lymphocytes # 1.9, Monocytes # 0.6, Eosinophils # 0.5 H, Basophils # 0.0, PUBS MCHC 32.4, MCH 31.6 H 08/20/16 0635: Sodium 137, Potassium 3.4 L, Chloride 104, Carbon Dioxide 25, BUN 17, Creatinine 0.8, Estimated Creat Clear 52, Estimated GFR (MDRD) 69, Glucose 90, Calcium 8.5, WBC 14.1 H, RBC 4.10 L, Hgb 12.8, Hct 39.5, MCV 96.4, RDW 14.0, Plt Count 264, MPV 8.9, Gran % 76.9, Gran # 10.8 H, Lymphocytes % 14.8, Monocytes % 4.7, Eosinophils % 3.3, Basophils % 0.4, Lymphocytes # 2.1, Monocytes # 0.7, Eosinophils # 0.5 H, Basophils # 0.1, PUBS MCHC 32.1, MCH 31.0 08/19/16 0910: Sodium 138, Potassium 3.5, Chloride 106, Carbon Dioxide 27, BUN 20 H, Creatinine 0.9, Estimated Creat Clear 47 L, Estimated GFR (MDRD) 60, Glucose 117 H, Calcium 8.1 L, Phosphorus 2.4, Magnesium 1.2 L, WBC 11.0 H, RBC 3.74 L, Hgb 11.3 L, Hct 36.6 L, MCV 97.7, RDW 13.7, Plt Count 256, MPV 9.0, Gran % 82.2 H, Gran # 9.1 H, Lymphocytes % 10.6, Monocytes % 4.8, Eosinophils % 2.2, Basophils % 0.2, Lymphocytes # 1.2, Monocytes # 0.5, Eosinophils # 0.3, Basophils # 0.0, PUBS MCHC 30.9 L, MCH 30.2 08/18/16 0850: Sodium 141, Potassium 3.6, Chloride 109 H, Carbon Dioxide 26, BUN 15, Creatinine 1.2 H, Estimated Creat Clear 35 L, Estimated GFR (MDRD) 43 L, Glucose 113 H, Calcium 8.2 L, WBC 11.0 H, RBC 3.75 L, Hgb 11.6 L, Hct 37.1, MCV 99.0 H, RDW 13.9, Plt Count 254, MPV 9.4, Gran % 80.1 H, Gran # 8.8 H, Lymphocytes % 13.8, Monocytes % 3.7, Eosinophils % 2.1, Basophils % 0.3, Lymphocytes # 1.5, Monocytes # 0.4, Eosinophils # 0.2, Basophils # 0.0, PUBS MCHC 31.3 L, MCH 31.0 Discharge medications: Stop taking the following medications: Risperidone (Risperidone) 1 MG TABLET ORAL AT BEDTIME NIGHTLY Levofloxacin (Levofloxacin 500MG TAB) 500 MG TABLET ORAL DAILY Qty = 5 Continue taking these medications: Methylcobalamin (F29-Clydto) 1,000 MCG CAP 1,000 MICROGRAM ORAL DAILY CHOLECALCIFEROL (VITAMIN D3) (Vitamin D3) 1 TAB TAB 1 TABLET ORAL DAILY DONEPEZIL HCL (Donepezil 10MG Tablet) 10 MG TABLET 10 MILLIGRAM ORAL DAILY Metoprolol Tartrate (Metoprolol) 50 MG TABLET 50 MILLIGRAM ORAL DAILY LEVOTHYROXINE SOD (Synthroid) 100 MCG TABLET 0.1 MILLIGRAM ORAL DAILY POTASSIUM CHL (Potassium Chloride) 10 MEQ TABLET 10 Milliequivalent ORAL EVERY OTHER DAY Hydrochlorothiazide W/Triamter (Triamterene-Hctz 37.5-25 MG Tb) 1 TAB TAB 1 TABLET ORAL DAILY Fluoxetine Hcl (Fluoxetine Hcl) 40 MG CAPSULE 40 MILLIGRAM ORAL DAILY MELATONIN (Melatin) 3 MG TABLET 1 TABLET ORAL DAILY CARBIDOPA/LEVODOPA (Sinemet Cr 50-200 Tablet) 1 EACH TABLET.ER 1 TABLET ORAL DAILY CARBIDOPA/LEVODOPA (Sinemet Cr 50-200 Tablet) 1 EACH TABLET.ER 2 TABLET ORAL AT BEDTIME NIGHTLY Start taking the following new medications: Cefuroxime Axetil (Cefuroxime) 500 MG TABLET 500 MILLIGRAM ORAL TWICE A DAY Qty = 14 No Refills MULTIVITAMIN WITH MINERALS (Multiple Vitamin) 1 EACH TABLET 1 TABLET ORAL DAILY Qty = 30 No Refills The following medications have been changed: Old: Alprazolam (Xanax 1MG) 1 MG TAB 1 MILLIGRAM ORAL THREE TIMES A DAY New: Alprazolam (Xanax 1MG) 1 MG TAB 1 MILLIGRAM ORAL THREE TIMES A DAY NEEDED as needed for ANXIETY Qty = 60 Disposition: Discharge to [facility]. Rehab potential is fair due to underlying Parkinson's disease and dementia. Current condition is good. at 0849
[2016-08-21 09:30] VITALS: BP 128/59
[2016-08-21 11:45] VITALS: BP 123/57
== END 2016-08-21 12:28 | DRG 690 ==
LOC: ER 11:21 → 2ND 13:04
PROVIDERS: Emergency Medicine; Family Medicine
DX: N39.0 Urinary tract infection, site not specified (principal); G20 Parkinson's disease; F02.80 Dementia in other diseases classified elsewhere, unspecified severity, without behavioral disturbance, psychotic disturbance, mood disturbance, and anxiety; I10 Essential (primary) hypertension; E87.6 Hypokalemia; E83.42 Hypomagnesemia; E83.39 Other disorders of phosphorus metabolism; I45.81 Long QT syndrome
CPT/HCPCS: G0378; J2405

== ENCOUNTER → 2017-05-03 | Outpatient (CLI) | payer MEDICARE, MEDICAID ==
[~2017-05-03] MED LIST changes: +CEFUROXIME AXE500 MG PO; +LEVOFLOXACIN 5500 M1 PO; +MELATIN1 TAB PO; +NATURE'S BLEND1 TA4 PO; +SINEMET CR 50 M1 TER PO
--- NOTE | 2017-05-03 20:05 | RADIOLOGY REPORT PS360 ---
CHEST(2 VIEWS-NOT PORTABLE) Ordering physician: Denis Georges MD Age: 86 years Female INDICATION: chest symptomsCOUGH difficulty swallowing 3 days. Nonsmoker. PROCEDURE: CHEST(2 VIEWS-NOT PORTABLE) FINDINGS: Previous chest film 04/29/2008 and October 2014. No significant new findings. Mild chronic changes. Most notable is the Apical pleural parenchymal scarring bilaterally which appears similar to old studies. Nothing definite acute.. No pneumothorax no pleural effusion. Chest wall intact There is additional levoscoliosis at at T-spine are seen today. Lateral view shows no significant new findings. No compression fractures only borderline disc space narrowing at mid T-spine similar to previous studies. There is progressive disc space narrowing at the upper lumbar spine & thoracolumbar junction T-spine appears stable with degenerative disc space narrowing at the upper lumbar spine having developed in the interval. Chest wall unremarkable. T-spine intact. IMPRESSION ----- Stable chest with Nothing definite acute. Minor chronic changes again noted.. Slight progressive diffuse levoscoliosis T-spine noted
== END ==
LOC: RAD 16:02
DX: R05 Cough (principal)